=== PATIENT | female | born 1945 | race Caucasian/White ===

== ENCOUNTER 2017-09-28 11:54 | Outpatient (CLI) | payer MEDICARE, BC | END 2017-09-28 11:55 | disposition home or self-care (01) | LOC: BICMAMMO 11:54 | PROVIDERS: ATTEND Internal Medicine | DX: Z12.31 Encounter for screening mammogram for malignant neoplasm of breast (principal) | CPT/HCPCS: 77063; 77067 ==

== ENCOUNTER 2018-07-10 10:22 | Outpatient (CLI) | payer MEDICARE, BC ==
--- NOTE | 2018-07-10 12:47 | BD ---
BONE DENSITOMETRY USING DEXA: Date: 07/10/18 HISTORY: Postmenopausal screening for osteoporosis. FINDINGS: Lumbar Spine: BMD (g/cm2) L1 0.794 T-Score: -1.8 Z-Score: 0.4 L2 0.856 T-Score: -1.6 Z-Score: 0.8 L3 0.849 T-Score: -2.1 Z-Score: 0.4 L4 0.768 T-Score: -2.7 Z-Score: -0.1 L1-L4 0.814 T-Score: -2.1 Z-Score: 0.3 Femoral Neck: 0.697 T-Score: -1.4 Z-Score: 0.7 Total Femur: 0.804 T-Score: -1.1 Z-Score: 0.7 The 10 year fracture risk for a major osteoporotic fracture is 8.5% and for a hip fracture is 1.7%. There has been interval reduction of 15.3% in the bone mineral density of the lumbar spine since 12/03 12/08. IMPRESSION: Osteopenia. POS: PIOTR
== END 2018-07-10 10:23 | disposition home or self-care (01) ==
LOC: BICMAMMO 10:22
PROVIDERS: ATTEND Internal Medicine
DX: M85.89 Other specified disorders of bone density and structure, multiple sites (principal)
CPT/HCPCS: 77080

== ENCOUNTER 2018-09-30 10:55 | Outpatient (CLI) | payer MEDICARE, BC | END 2018-09-30 10:56 | disposition home or self-care (01) | LOC: BICMAMMO 10:55 | PROVIDERS: ATTEND Internal Medicine | DX: Z12.31 Encounter for screening mammogram for malignant neoplasm of breast (principal) | CPT/HCPCS: 77063; 77067 ==

== ENCOUNTER 2019-04-07 08:25 | Outpatient (CLI) | payer MEDICARE, BC ==
[2019-04-07] MEDS ORDERED: Gadobenate Dimeglumine 529 MG/1 ML (20ML VIAL) ONE (09:00)
--- NOTE | 2019-04-07 15:06 | MRI ---
Exam: MRI LUMBAR SPINE WITH AND WITHOUT CONTRAST: HISTORY: Low back pain radiating down the left leg. Weakness, times years. Progressively worsening. COMPARISON: None. TECHNIQUE: MRI lumbar spine performed with and without intravenous gadolinium administration. Multise quential, multiplanar imaging obtained. FINDINGS: Appropriate T1 marrow signal intensity lumbar vertebra. Lumbar spine vertebral body height is maintai maddie. No fracture. No significant STIR hyperintensity to suggest vertebral body edema or ligamentous injury. Appropriate signal intensity of the paraspinal muscles. Multiple T2 hyperintensities throughout the renal cortices compatible with bilateral cortical cysts. Postcontrast images do not demonstrate any abnormal enhancement with regards to the visualized parasp inal muscles or solid organs. There is no abnormal enhancement with regards to the lumbar vertebra. No abnormal enhancement within the thecal sac and cauda equina and conus larynx. T12-L1: Adequate disc hydration. No significant central canal stenosis or neural foraminal narrowing. L1-L2: Adequate disc hydration. No significant central canal stenosis or neural foraminal narrowing. L2-L3: Adequate disc hydration. Broad-based disc bulge, ligament flavum thickening, and facet hypertr ophy result in mild to moderate central canal stenosis. Bilaterally, neural foramina are patent. L3-L4: Adequate disc hydration. Broad-based disc bulge abuts the thecal sac. Minimal ligamentum flavu m thickening and facet hypertrophy. No significant central canal stenosis. Bilaterally, neural foramina are patent. L4-L5: Adequate disc hydration. Broad-based disc bulge, ligament flavum thickening and facet hypertro phy do not cause any significant central canal stenosis. Disc material abuts but does not obscure either traversing L5 nerve root. Bilaterally, neural foramina are patent. L5-S1: Central disc protrusion with disc material encroaching upon both subarticular zones. Disc mate rial abuts but does not obscure either traversing S1 nerve root. No significant central canal stenosis. Bilaterally, neural foramina are patent. T2 hyperintensity in the right S1 foramen, likely representing a perineural sleeve cyst. There also a ppears to be a perineural sleeve cyst in the left and right neural foramina at the T11-T12 level. IMPRESSION: 1. Degenerative changes of the lumbar spine as described above. No evidence of significant central ca nal stenosis or neural foraminal narrowing. 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 3. Multiple renal cortical cysts. Transcribed Date/Time: 04/07/2019 3:25 PM
== END 2019-04-07 08:26 | disposition home or self-care (01) ==
LOC: SCSMRI 08:25
PROVIDERS: ATTEND Family Medicine
DX: M54.42 Lumbago with sciatica, left side (principal); M47.816 Spondylosis without myelopathy or radiculopathy, lumbar region; M71.38 Other bursal cyst, other site
CPT/HCPCS: 72158; 82565; A9577

== ENCOUNTER 2019-05-30 08:47 | Outpatient (CLI) | payer MEDICARE, BC ==
--- NOTE | 2019-05-30 10:47 | ULT ---
COMPLETE ABDOMEN ULTRASOUND INDICATION: Abdominal discomfort without changes for 2 months and history of A pulsatile abdominal ao rta concern for aneurysm TECHNIQUE: Grayscale, color Doppler and spectral Doppler were obtained of the abdomen. COMPARISON: CT of the abdomen and pelvis dated December 22, 2015 from [facility] . FINDINGS: Liver: Normal. Main portal vein: Patent with appropriate hepatopedal flow Pancreas: Visualized aspects appeared normal. Gallbladder: Surgically absent. Common bile duct:5.7mm. Right kidney: The right kidney measured 10.8 x 5.2 x 5.9 cm. There are small echogenic reflectors see n within the cortex of the right kidney may correspond to tiny cysts seen on the comparison CT examination and associated layered proteinaceous debris. Tiny hypodensities could reflect tiny angiom yolipoma; however, this is less favored as there is some ringdown artifact from portions of these hyperechoic abnormality suggesting proteinaceous or calcific debris. There are larger cysts within th e right kidney. One is seen anterior medially within the lower right kidney measuring 1.2 x 1 x 1.2 cm. There is prominent peripelvic cyst seen within the inferior pole measuring 2.6 x 2.5 x 2 point wa s seen on the comparison exams. Left kidney: The left kidney measured 10.7 x 5.2 x 5.9 cm. No focal renal lesion or hydronephrosis is demonstrated. Aorta and IVC: The aorta is normal in caliber. The proximal aorta measured 2.2 cm in AP dimension. Mi d abdominal aorta measured 1.9 cm. The distal abdominal aorta measured 1 cm. The left common iliac artery measured 0.8 cm. The right common iliac artery measures 0.86 cm. There is some mild atheroscle rotic irregularity involving the abdominal aorta. IVC appear within normal limits. Spleen: 8.8cm in length. No focal splenic lesion is evident. Free fluid: None. IMPRESSION: 1. No evidence for aneurysmal dilatation of the abdominal aorta. 2. Cholecystectomy. 3. Right renal cysts.
== END 2019-05-30 08:48 | disposition home or self-care (01) ==
LOC: SCSULT 08:47
PROVIDERS: ATTEND Family Medicine
DX: R10.9 Unspecified abdominal pain (principal); R09.89 Other specified symptoms and signs involving the circulatory and respiratory systems; N28.1 Cyst of kidney, acquired; Z90.49 Acquired absence of other specified parts of digestive tract
CPT/HCPCS: 76700

== ENCOUNTER 2020-07-14 10:04 | Outpatient (CLI) | payer MEDICARE, BC ==
--- NOTE | 2020-07-14 10:56 | BD ---
EXAM: Bone densitometry using DEXA HISTORY: 75 yo female. Screening for postmenopausal osteoporosis FINDINGS: L1--bone mineral density 0.779 g/sq cm; T score -1.9 ; Z score 0.3 L2--bone mineral density 0.861 g/sq cm; T score -1.5 ; Z score 1.0 L3--bone mineral density 0.843 g/sq cm; T score -2.2 ; Z score 0.4 L4--bone mineral density 0.767 g/sq cm; T score -2.7 ; Z score 0 point Total L1-L4--bone mineral density 0.810 g/sq cm; T score -2.2 ; Z score 0.4 Left femoral neck--bone mineral density0.693; T score -1.4 ; Z score 0.8 Total proximal left femur--bone mineral density 0.804; T score -1.1 ; Z score 0.8 There has been an interval reduction of 0.5% in the BMD of the lumbar spine and a reduction of 0.1% in the BMD of the proximal femur since the previous study of 07/10/2018. The 10 year fracture risk for a major osteoporotic fracture is 9.4% and for a hip fracture is 2.2%. IMPRESSION: Osteopenia
== END 2020-07-14 10:05 | disposition home or self-care (01) ==
LOC: BICMAMMO 10:04
PROVIDERS: ATTEND Family Medicine
DX: Z13.820 Encounter for screening for osteoporosis (principal); Z78.0 Asymptomatic menopausal state; M85.89 Other specified disorders of bone density and structure, multiple sites
CPT/HCPCS: 77080

== ENCOUNTER 2024-03-14 15:23 | Outpatient (CLI) | payer MEDICARE | END 2024-03-14 15:24 | disposition home or self-care (01) | LOC: SCSRAD 15:23 | PROVIDERS: ATTEND Family Medicine | DX: S99.921A Unspecified injury of right foot, initial encounter (principal); S92.354A Nondisplaced fracture of fifth metatarsal bone, right foot, initial encounter for closed fracture ==